=== PATIENT | female | born 1955 | race Caucasian/White ===

== ENCOUNTER 2016-07-08 12:26 | Emergency (ER) | payer OTHER ==
[~2016-07-08] VITALS: Ht 172.7 cm; Wt 104.3 kg
[2016-07-08 12:26] VITALS: BP 150/90; PULSE 130; RESP 18; TEMP 97.2; O2SAT 98
--- NOTE | 2016-07-08 12:30 | NUR ---
Raymundo juan in [facility] - 07/08/16 at 1426 by JINA Placed in room 08. Placed on playground monitor, blood pressure machine and pulse oximeter. To gown for exam. Side rails up.by Dolores VALDES
--- NOTE | 2016-07-08 12:30 | NUR ---
ER examining patient in [facility]
--- NOTE | 2016-07-08 12:30 | NUR ---
Placed in room 08 . Placed on surveillance system monitor, blood pressure machine and pulse oximeter. To gown for exam. Side rails up.
[2016-07-08] MEDS ORDERED: BECL8.7A6 INH (12:42)
[2016-07-08] MEDS ORDERED: IBUP-1480 PO (12:42)
[2016-07-08] MEDS ORDERED: ALBMDI INH (12:42)
[2016-07-08 13:44] LABS: BASOPHILS # (AUTO) 0.1 K/uL (0.0-0.2); BASOPHILS % (AUTO) 0.9 % (0.0-2.0); EOSINOPHILS # (AUTO) 0.3 K/uL (0.0-0.4); EOSINOPHILS % (AUTO) 2.7 % (0.0-4.0); HEMATOCRIT 45.8 % (36-48); HEMOGLOBIN 14.9 g/dL (12.0-16.0); LYMPHOCYTES # (AUTO) 2.4 K/uL (1.0-5.5); LYMPHOCYTES % (AUTO) 20.6 % (20.5-51.5); MEAN CORPUSCULAR HEMOGLOBIN 29 pg (27-31); MEAN CORPUSCULAR HGB CONC 32 % (32-36); MEAN CORPUSCULAR VOLUME 91 fL (79.0-98.0); MONOCYTES # (AUTO) 0.6 K/uL (0.0-1.0); MONOCYTES % (AUTO) 5.5 % (1.7-9.3); NEUTROPHILS # (AUTO) 8.2 K/uL (1.8-7.7); NEUTROPHILS % (AUTO) 70.3 % (40.0-70.0); PLATELET COUNT (AUTO) 294 K/uL (130-430); RED BLOOD CELL COUNT(AUTO) 5.06 MIL/uL (4.2-6.2); RED CELL DISTRIBUTION WIDTH 12.8 % (9.0-15.0); WHITE BLOOD COUNT (AUTO) 11.6 K/uL (4.8-10.8)
[2016-07-08] MEDS ORDERED: DILTIAZEM HCL 25 MG/5 ML VIAL IVP ONE (13:45)
[2016-07-08] MEDS ORDERED: DILTIAZEM HCL 60 MG TABLET PO ONE (13:45)
[2016-07-08 13:55] LABS: CALCIUM 9.5 mg/dL (8.4-11.0); CREATININE 0.88 mg/dL (0.55-1.30); POTASSIUM 4.5 mmol/L (3.5-5.1)
--- NOTE | 2016-07-08 14:20 | NUR ---
Medicated with Cardizem per Dr. Caceres's order via #20 gauge angiocath placed to RAC. Use of asceptic technique. Opsite placed over site. Blood return noted. Flushed with 10 cc of normal saline. No evidence of infiltration noted. Patient tolerated well.
--- NOTE | 2016-07-08 14:21 | NUR ---
BIB BLS from [facility] for new onset afib, while at [facility] for pap smear upon evaluation from [facility] staff pt had irregular heart rate, denied sob or cp and denies them at this time as well.
--- NOTE | 2016-07-08 15:53 | NUR ---
Report given to ER Nurse Jenniffer at [facility] [phone] denied further questions Patient to be transferred to [facility]. Is being transferred due insurance request Receiving facility has accepting physician and available space. ER physician has signed transfer form. Patient or responsible libertarian has agreed to transfer and signed form. Patient belongings inventoried and will be sent with patient. Copy of nursing notes, lab reports, EKG, Physicians Orders and X-rays to be sent with patient. Report called to at receiving facility. Receiving physician is Dr. Cervantes. ambulance service has been called for transfer. ETA is [id number].
[2016-07-08 16:45] VITALS: BP 134/83; PULSE 132; RESP 18; TEMP 97; O2SAT 100
--- NOTE | 2016-07-08 16:45 | NUR ---
Report given to PRN ambulanced denied further questions. Pt denied further questions or concerns at time of transfer
== END 2016-07-08 16:45 | disposition short-term general hospital (02) ==
LOC: SED 12:26
DX: I48.91 Unspecified atrial fibrillation (principal); Z88.5 Allergy status to narcotic agent
CPT/HCPCS: 36415; 71010; 80048; 82550; 83880; 84484; 85025; 85610; 85730; 93005; 96374; 99285; J3490